=== PATIENT | male | born 1960 | race Hispanic/Latino ===

== ENCOUNTER 2017-06-30 17:18 | Observation (INO) | payer SELFPAY ==
[2017-06-30] MEDS ORDERED: Iodixanol 320 MG/ML 100 ML BOTTLE IV ONE (17:37)
[2017-06-30] MEDS ORDERED: Sodium Chloride 0.9% 50 ML IV ONE (17:38)
--- NOTE | 2017-06-30 17:46 | ED PDOC ---
HPI:STROKE - Time Time: 17:35 - Historian Historian: Patient, Family (chelsey) - Chief Complaint Chief Complaint: Facial droop (l) - Onset Date: 06/30/17 Time: 17:00 (occured today at 5 pm) - Notes: Notes:: 56 yo m with history of alcoholism, and drug abuse, brought in by friend who said that he was walking with patient and then patient felt weak and fell to the ground., did not hit head or neck. but just slumped over. no seizure activity, but had urinary incontinence. and now pt has new left sided facial droop. pt denies any problems or change, but pt is disoriented. stroke code called upon pt arrival . NIHSS Stroke Scale - Date/Time Evaluation Performed Date Performed: 06/30/17 Time Performed: 17:35 When Was NIHSS Performed: Baseline - How Severe is the Stroke Level of Consciousness: 0=Alert LOC to Questions: 2=Neither correct LOC to commands: 0=Obeys both correctly Best Gaze: 0=Normal Visual: 0=No visual loss Facial: 2=Partial (lower face paralysis) Motor Arm - Left: 1=Drift noted before 10 sec Motor Arm - Right: 0=No drift Motor Leg - Left: 0=No drift Motor Leg - Right: 0=No drift Limb Ataxia: 0=Absent Sensory: 0=Normal Best Language: 0=No aphasia Dysarthia: 0=Normal articulation Extinction & Inattention (Neglect): 0=Normal, no object Score: 5 rTPA Inclusion/Exclusion - Refusal of Treatment Patient Refused Treatment: No - Inclusion Criteria for Altepase Patient is 18 years or Older: Yes The Clinical Diagnosis of Ischemic Stroke That is Causing a Potentially Disabling Neurological Deficit: No Time of Onset is Well Established to be Less Than 270 Minute Before Treatment Would Begin: No Risk/Benefit Discussed With Patient/Family Member Present: No - Exclusion Criteria for Altepase Uncontrolled Hypertension at Time of Treatment (Systolic BP above 185 or Diastolic BP above 110 mmHg): No Active Internal Bleeding: No Known Bleeding Diathesis Including but Not Limited to: Platelets Below 100,000/ mm,PTT Above 40 sec After Heparin Use, Current Use of Oral Anitcoagulant With INR Greater Than 1.7 or PT Greater Than 15 secs: No Evidence of an Intracranial Hemorrhage: No Evidence of Major Acute Infarct With Signs Greater Than 1/3 MCA Territory: No Suspicion of Subarachnoid Hemorrhage on Pretreatment Evaluation Even if CT Head Negative For Hemorrhage: No - Warning to TPA With Conditions Following Conditions Weighed Against Anticipated Benefit: No Past Medical History - Medical History Other PMH: alcoholism - Surgical History Surgical History: No Surg Hx - Family History Family History: States: No Known Family Hx - Social History Current smoker - smoking cessation education provided: No Alcohol: > 2 Drinks/Day Drugs: Cannabis - Home Medications Home Medications: Ambulatory Orders Medication Instructions Recorded Gabapentin [Neurontin] 300 mg PO TID #90 cap 07/01/17 - Allergies Allergies/Adverse Reactions: Allergies Allergy/AdvReac Type Severity Reaction Status Date / Time No Known Allergies Allergy Verified 06/30/17 17:19 Physical Exam - Reviewed Nursing Documentation Reviewed: Yes Vital Signs Reviewed: Yes - Physical Exam Appears: Positive for: Well, Non-toxic, No Acute Distress Head Exam: Positive for: ATRAUMATIC, NORMAL INSPECTION, NORMOCEPHALIC Skin: Positive for: Normal Color, Warm, DRY Eye Exam: Positive for: EOMI, Normal appearance, PERRL Neck: Positive for: Normal, Painless ROM Cardiovascular/Chest: Positive for: Regular Rate, Rhythm Respiratory: Positive for: CNT, Normal Breath Sounds Gastrointestinal/Abdominal: Positive for: Normal Exam, Soft Back: Positive for: Normal Inspection Extremity: Positive for: Normal ROM Neurologic/Psych: Positive for: Alert, Other (see full neuro exam). Negative for: Oriented - Laboratory Results Result Diagrams: 06/30/17 18:00 06/30/17 18:00 Medical Decision Making Medical Decision Making: new facial droop with possible stroke/syncope/seizure code stroke called immediately given left facial droop and slight drift on the left upper extremity. Dr Lovett made aware of case, will see pt in the ER CT head report-- no acute process, old findings noted on CT. report given to me by Dr Garza [address] Lovett at bedside, recommend ASA and full workup/admission for rule out stroke CXR report - appeared negative Time: 2002 -- Hospital paged regarding admission. Time: 2006 -- Case discussed with Dr. Clay. Patient will be admitted for further evaluation/observation. Scribe Attestation: Documented by Mickey Castellon, acting as a scribe for Dr. Stevie Vazquez MD. Provider Scribe Attestation: All medical record entries made by the Scribe were at my direction and personally dictated by me. I have reviewed the chart and agree that the record accurately reflects my personal performance of the history, physical exam, medical decision making, and the department course for this patient. I have also personally directed, reviewed, and agree with the discharge instructions and disposition. Disposition - Clinical Impression Clinical Impression: Facial droop as late effect of cerebrovascular accident (CVA) - Patient ED Disposition Is Patient to be Admitted: Yes Counseled Patient/Family Regarding: Studies Performed, Diagnosis - Disposition Disposition Time: 19:00 Condition: STABLE
--- NOTE | 2017-06-30 17:57 | CT ---
PROCEDURE: CT HEAD WITHOUT CONTRAST. HISTORY: Altered mental status. Code stroke protocol employed COMPARISON: None available. TECHNIQUE: Axial computed tomography images were obtained through the head/brain without intravenous contrast. Coronal and sagittal reconstructed images. Radiation dose: Total exam DLP = 1082.43 mGy-cm. This CT exam was performed using one or more of the following dose reduction techniques: Automated exposure control, adjustment of the mA and/or kV according to patient size, and/or use of iterative reconstruction technique. FINDINGS: HEMORRHAGE: No intracranial hemorrhage. BRAIN: No mass effect or edema. Cortical and cerebellar atrophy, periventricular small vessel disease. Tiny lacune or infarcts less than 1 cm also identified on the right. Small extra-axial fluid collections about the convexities. Maximum thickness on the right 5.8 mm. Maximum thickness on the left 3.5 mm. No evidence of edema, mass effect or evidence of superimposed acute hemorrhage. VENTRICLES: Unremarkable. No hydrocephalus. CALVARIUM: Unremarkable. PARANASAL SINUSES: Unremarkable as visualized. No significant inflammatory changes. MASTOID AIR CELLS: Unremarkable as visualized. No inflammatory changes. OTHER FINDINGS: None. IMPRESSION: Extra-axial fluid collections about the convex CT's bilaterally. These are likely chronic. No edema or mass effect. No layering of blood products to suggest an acute component. Underlying cortical atrophy. Code stroke protocol: Study completed 17:40 Radiologist notified 17:49 Results conveyed verbally at 17:53. I discussed findings with the attending physician in the emergency department Dr. Vazquez. Interpretation finalized and available for review 17:56 June 30, 2017.
[2017-06-30 18:13] LABS: BASO # 0.1 K/uL (0.0-0.2); BASO % 3.3 % (0.0-2.0); EOS # 0.1 K/uL (0.0-0.7); EOS % 1.5 % (0.0-4.0); HEMOGLOBIN 12.8 g/dL (12.0-18.0); LYMPH # 1.2 K/uL (1.0-4.3); MEAN CELL VOLUME 103.5 fl (80.0-94.0); MEAN CORPUSCULAR HEMOGLOBIN 34.3 pg (27.0-31.0); MEAN CORPUSCULAR HGB CONC 33.1 g/dL (33.0-37.0); MONO # 0.4 K/uL (0.0-0.8); MONO % 9.3 % (0.0-10.0); NEUT # 2.2 K/uL (1.8-7.0); NEUT % 55.9 % (50.0-75.0); NRBC % 0.1 % (0.0-0.0); PLATELET COUNT 285 K/uL (130-400); RBC 3.74 Mil/uL (4.40-5.90); WHITE BLOOD COUNT 3.9 K/uL (4.8-10.8)
[2017-06-30] MEDS: Sodium Chloride 0.9% 1,000 ML IV SCH (18:14)
--- NOTE | 2017-06-30 18:18 | CT ---
PROCEDURE: CTA HEAD AND NECK WITH CONTRAST HISTORY: left facial droop COMPARISON: None available. TECHNIQUE: Initial noncontrast head CT was performed. Subsequently, CT angiogram of the head and neck were performed after the intravenous administration of 80 mL of Omnipaque 350. Contiguous 1.5mm thick images were obtained in the axial plane of the neck. 2-D coronal and sagittal MPR images were obtained. Imaging postprocessing was performed with 3-D images also obtained. A delayed contrast head CT was also obtained. This CT exam was performed using one or more of the following dose reduction techniques: Automated exposure control, adjustment of the mA and/or kV according to patient size, and/or use of iterative reconstruction technique. Contrast dose: 80 mL Visipaque Radiation dose: Total exam DLP = 784.33 mGy-cm. FINDINGS: HEAD: Right: The intracranial internal carotid artery, and anterior and middle cerebral arteries are widely patent. Left: The intracranial internal carotid artery, and anterior and middle cerebral arteries are widely patent. Posterior circulation: The visualized intracranial vertebral arteries, basilar artery and posterior cerebral arteries are widely patent. Ther is no endoluminal filling defect to suggest thrombus. There is no intracranial saccular aneurysm. NECK: There is a three vessel aortic arch. There is no stenosis at the origins of the great vessels at the level of the aortic arch. Right Carotid: On the right, the common carotid, internal carotid and external carotid arteries are widely patent. There is no hemodynamically significant stenosis in the internal carotid artery by NASCET criteria. Left Carotid: On the left, the common carotid, internal carotid and external carotid arteries are widely patent. There is no hemodynamically significant stenosis in the internal carotid artery by NASCET criteria. The vertebral arteries are widely patent. IMPRESSION: 1. No evidence of occlusion, definite significant stenosis or saccular aneurysm. 2. No evidence of hemodynamically significant stenosis in the internal carotid arteries. 3. Patent bilateral vertebral arteries.
[2017-06-30 18:26] LABS: INR 1.1 (0.9-1.2); PARTIAL THROMBOPLASTIN TIME 32.3 Seconds (25.6-37.1); PROTHROMBIN TIME 11.9 Seconds (9.8-13.1)
--- NOTE | 2017-06-30 18:30 | CP.PCM.CON ---
History of Present Illness - History of Present Illness History of Present Illness: Mr. Proctor is a 56-year-old alcoholic man, who was walking with his friend about two hours ago, when he suddenly leaned against the fence and urinated on himself, and fell to the ground. EMS was called. When they arrived, the patient was very combative and agitated. In the ED, a left facial droop was noted. CT scan of the head showed a right basal ganglia chronic lacunar stroke as well as chronic subdural collections. CTA of the head/neck did not show any large vessel occlusion. His NIHSS was 1. His facial droop was improving according to his friend. However, he remained slightly confused. Review of Systems - Review of Systems All systems: reviewed and no additional remarkable complaints except Past Patient History - Past Social History Smoking Status: Unknown If Ever Smoked - PSYCHIATRIC Hx Substance Use: Yes Meds Allergies/Adverse Reactions: Allergies Allergy/AdvReac Type Severity Reaction Status Date / Time No Known Allergies Allergy Verified 06/30/17 17:19 - Medications Medications: Current Medications Sodium Chloride (Sodium Chloride 0.9%) 1,000 mls @ 100 mls/hr IV .Q10H CESAR Last Admin: 06/30/17 18:14 Dose: 100 mls/hr Physical Exam - Constitutional Appears: Well - Head Exam Head Exam: ATRAUMATIC, NORMAL INSPECTION, NORMOCEPHALIC - Neurological Exam Neurological exam: Alert, CN II-XII Intact, Normal Gait, Oriented x3, Reflexes Normal Additional comments: Left facial droop noted. Sensation is intact. Strength is full throughout. NIHSS = 1. Results - Vital Signs Recent Vital Signs: Last Vital Signs Temp 97.8 F 06/30/17 18:05 Pulse 101 H 06/30/17 18:05 Resp 20 06/30/17 18:05 BP 148/88 06/30/17 18:05 Pulse Ox 97 06/30/17 18:05 - Labs Result Diagrams: 06/30/17 18:00 Labs: Laboratory Results - last 24 hr 06/30/17 06/30/17 17:21 18:00 WBC 3.9 L RBC 3.74 L Hgb 12.8 Hct 38.8 MCV 103.5 H MCH 34.3 H MCHC 33.1 RDW 15.0 H Plt Count 285 MPV 7.0 L Neut % (Auto) 55.9 Lymph % (Auto) 30.0 [place] % (Auto) 9.3 Eos % (Auto) 1.5 Baso % (Auto) 3.3 H Neut # (Auto) 2.2 Lymph # (Auto) 1.2 [place] # (Auto) 0.4 Eos # (Auto) 0.1 Baso # (Auto) 0.1 POC Glucose (mg/dL) 89 Assessment & Plan (1) Facial droop as late effect of cerebrovascular accident (CVA) Assessment and Plan: This could be due to exacerbation of previous right lacunar stroke. However, it may also be a new infarct. His symptoms are too mild and are improving. He is not a good candidate for IV tPA especially since there was a likely seizure at onset. I recommend the followin. Telemetry 2. MRI brain without contrast 3. Aspirin 325 now and continue 81 mg daily 4. PT/OT eval and treatment 5. Fluids with NS at 100 mL/hr 6. Check lipid panel, HbA1c, B12, folate, TSH, homocysteine 7. Echocardiogram 8. Case management consult Thank you. Status: Acute (2) Seizure Assessment and Plan: Start gabapentin 300 mg TID for prophylaxis. Will obtain EEG awake and drowsy for 30 minutes. Thank you. Status: Acute
--- NOTE | 2017-06-30 18:38 | RAD ---
HISTORY: Code Stroke COMPARISON: No prior. FINDINGS: LUNGS: There are low lung volumes. The lungs are clear. PLEURA: No significant pleural effusion identified, no pneumothorax apparent. CARDIOVASCULAR: Normal. OSSEOUS STRUCTURES: No significant abnormalities. VISUALIZED UPPER ABDOMEN: Normal. OTHER FINDINGS: None. IMPRESSION: No active pulmonary disease.
[2017-06-30 18:44] LABS: LDL CHOLESTEROL 119 mg/dL (0-129)
[2017-06-30 18:52] LABS: ALB/GLOB RATIO 1.1 (1.0-2.1); ALBUMIN 3.7 g/dL (3.5-5.0); ALT/SGPT 59 U/L (21-72); AST/SGOT 88 U/L (17-59); BLOOD UREA NITROGEN 8 mg/dl (9-20); CALCIUM 8.8 mg/dL (8.4-10.2); GFR AFRICAN-AMERICAN > 60; GFR NON-AFRICAN AMERICAN > 60; HDL CHOLESTEROL 62 MG/DL (30-70)
[2017-06-30 19:48] LABS: BARBITURATES, UR NEGATIVE (NEGATIVE); BENZODIAZEPINES, UR NEGATIVE (NEGATIVE); OPIATES, UR NEGATIVE (NEGATIVE); PHENCYCLIDINE, UR NEGATIVE (NEGATIVE)
[2017-06-30 19:56] LABS: ANISOCYTOSIS SLIGHT; EOSINOPHIL 1 % (0-7); LYMPHOCYTE 33 % (20-50); MONOCYTE 5 % (0-10); NEUTROPHIL 56 % (42-75); POIKILOCYTOSIS SLIGHT; REACTIVE LYMPHOCYTES 5 % (0-0); TOTAL CELLS COUNTED 100
[2017-06-30 19:57] LABS: HYPOCHROMIC SLIGHT; STOMATOCYTES SLIGHT
[2017-06-30 20:01] LABS: PLATELET ESTIMATE NORMAL (NORMAL)
[2017-06-30] MEDS ORDERED: Multivitamin (MVI) 10 ML, Thiamine 100 MG, Folic Acid 1 MG in Sodium Chloride 0.9% 1,00... IV ONE (20:02)
--- NOTE | 2017-06-30 20:55 | CP.PCM.HP ---
History of Present Illness - History of Present Illness History of Present Illness: CC: Altered mental status This is a 56 yo male with a pmh of alcoholism (drinks a bottle a wine 5 days a week), denies any other medical problems, who presents to the ED after sudden alteration of mental status. He was walking outside with his friend 2 hours prior to admission when he suddenly leaned against a fence and was unresponsive and had urinary incontinence. EMS was called; when they arrived the patient was combative and agitated and was also found to be intoxicated. In the ED, the patient was noted to have left facial droop. Code stroke was called and patient was sent for CT of the brain which revealed right basal ganglia chronic lacunar stroke as well as chronic subdural collections. CTA of the head/neck did not show any large vessel occlusion. MRI brain was performed, report pending at this time. Dr. Lovett, neurologist, evaluated the patient in the ED. The patient is being admitted to tele/observation for further workup of likely seizure activity and workup for CVA. Patient denies chest pain, shortness of breath, fevers, chills, nausea, vomiting, diarrhea, headache. All of the patient's questions were answered at the bedside. Present on Admission - Present on Admission Any Indicators Present on Admission: No History of DVT/PE: No History of Uncontrolled Diabetes: No Review of Systems - Review of Systems Review of Systems: A 12 point review of systems was conducted and found to be negative other than what was mentioned in the HPI. Past Patient History - Infectious Disease Hx of Infectious Diseases: None - Past Medical History & Family History Past Medical History?: No Past Family History: Reviewed and not pertinent - Past Social History Smoking Status: Never Smoked Alcohol: > 2 Drinks/Day Drugs: Cannabis - PSYCHIATRIC Hx Substance Use: Yes - SURGICAL HISTORY Hx Orthopedic Surgery: Yes (bilateral knee surgeries) Meds Allergies/Adverse Reactions: Allergies Allergy/AdvReac Type Severity Reaction Status Date / Time No Known Allergies Allergy Verified 06/30/17 17:19 Physical Exam - Additional Findings Additional findings: Physical exam: Constitutional- cooperative, awake, alert Head- NCAT, PERRL Eye- PERRL, EOMI ENT- normal exam, MMM. Neck- normal inspection, supple, no JVD Respiratory- CTAB, no wheezes rales rhonchi Cardiovascular- RRR, +S1, +S2 no MRG GI/Abdominal- normal bowel sounds, soft, no mass, no hsm Skin- warm, dry Extremities Exam- normal capillary refill, normal inspection Neurological Exam- alert, awake, oriented x 3 at time of exam. + left facial droop. + left pronator drift, mild. 5/5 muscle strength x 4 extremities. Psych- + appears anxious. + normal affect Results - Vital Signs Recent Vital Signs: Last Vital Signs Temp 97.8 F 06/30/17 18:05 Pulse 88 06/30/17 18:20 Resp 15 06/30/17 18:20 BP 145/94 H 06/30/17 18:20 Pulse Ox 95 06/30/17 18:20 - Labs Result Diagrams: 06/30/17 18:00 06/30/17 18:00 Labs: Laboratory Results - last 24 hr 06/30/17 06/30/17 06/30/17 17:21 18:00 18:00 WBC 3.9 L RBC 3.74 L Hgb 12.8 Hct 38.8 MCV 103.5 H MCH 34.3 H MCHC 33.1 RDW 15.0 H Plt Count 285 MPV 7.0 L Neut % (Auto) 55.9 Lymph % (Auto) 30.0 [place] % (Auto) 9.3 Eos % (Auto) 1.5 Baso % (Auto) 3.3 H Neut # (Auto) 2.2 Lymph # (Auto) 1.2 [place] # (Auto) 0.4 Eos # (Auto) 0.1 Baso # (Auto) 0.1 Neutrophils % (Manual) 56 Lymphocytes % (Manual) 33 Reactive Lymphs % 5 H Monocytes % (Manual) 5 Eosinophils % (Manual) 1 Platelet Estimate Normal RBC Morphology Normal Hypochromasia (manual) Slight Poikilocytosis (manual Slight Anisocytosis (manual) Slight Macrocytosis (manual) Slight Stomatocytes Slight PT INR APTT Sodium 143 Potassium 3.7 Chloride 102 Carbon Dioxide 19 L Anion Gap 26 H BUN 8 L Creatinine 0.6 L Est GFR ( Amer) > 60 Est GFR (Non-Af Amer) > 60 POC Glucose (mg/dL) 89 Random Glucose 91 Calcium 8.8 Total Bilirubin 0.5 AST 88 H ALT 59 Alkaline Phosphatase 63 Troponin I < 0.0120 Total Protein 7.2 Albumin 3.7 Globulin 3.4 Albumin/Globulin Ratio 1.1 Triglycerides 78 Cholesterol 203 H LDL Cholesterol Direct 119 HDL Cholesterol 62 Urine Opiates Screen Urine Methadone Screen Ur Barbiturates Screen Ur Phencyclidine Scrn Ur Amphetamines Screen U Benzodiazepines Scrn U Oth Cocaine Metabols U Cannabinoids Screen Alcohol, Quantitative 348 H* 06/30/17 06/30/17 18:00 19:20 WBC RBC Hgb Hct MCV MCH MCHC RDW Plt Count MPV Neut % (Auto) Lymph % (Auto) [place] % (Auto) Eos % (Auto) Baso % (Auto) Neut # (Auto) Lymph # (Auto) [place] # (Auto) Eos # (Auto) Baso # (Auto) Neutrophils % (Manual) Lymphocytes % (Manual) Reactive Lymphs % Monocytes % (Manual) Eosinophils % (Manual) Platelet Estimate RBC Morphology Hypochromasia (manual) Poikilocytosis (manual Anisocytosis (manual) Macrocytosis (manual) Stomatocytes PT 11.9 INR 1.1 APTT 32.3 Sodium Potassium Chloride Carbon Dioxide Anion Gap BUN Creatinine Est GFR ( Amer) Est GFR (Non-Af Amer) POC Glucose (mg/dL) Random Glucose Calcium Total Bilirubin AST ALT Alkaline Phosphatase Troponin I Total Protein Albumin Globulin Albumin/Globulin Ratio Triglycerides Cholesterol LDL Cholesterol Direct HDL Cholesterol Urine Opiates Screen Negative Urine Methadone Screen Negative Ur Barbiturates Screen Negative Ur Phencyclidine Scrn Negative Ur Amphetamines Screen Negative U Benzodiazepines Scrn Negative U Oth Cocaine Metabols Negative U Cannabinoids Screen Positive H Alcohol, Quantitative Assessment & Plan - Assessment and Plan (Free Text) Plan: ASSESSMENT/PLAN This is a 56 yo male with a pmh of alcoholism (drinks a bottle a wine 5 days a week), denies any other medical problems, who presents to the ED after sudden alteration of mental status, being placed on tele/obs for seizure and CVA workup. 1) Possible CVA (left facial droop) with likely seizure activity, unsure if seizure due to old CVA, acute CVA - Place on tele/obs - Consultation with Dr. Lovett, neurology - Echocardiogram - EEG - NS at 100 cc/hour - ASA 81 mg po daily - Gabapentin 300 mg po TID for seizure prophylaxis as per Dr. Lovett - Ativan 1 mg IVP PRN for seizure activity - F/u MRI brain report - F/u homocysteine, B12/folate, TSH, HGA1C. Lipid panel shows elevated cholesterol of 203. - PT/OT eval and treatment - Case management consult 2) Alcohol abuse - Ativan PRN for seizure - Patient acutely intoxicated when arriving to ED - Multivitamin bag - Check B12/folate levels as above (patient has elevated MCV) 3) Cannabis abuse - chronic 4) DVT prophylaxis - Lovenox 40 mg sc daily
[2017-07-01 00:14] VITALS: RESP 18; O2SAT 95
[2017-07-01] MEDS: Sodium Chloride 0.9% 1,000 ML IV SCH (04:21)
[2017-07-01 08:19] VITALS: TEMP 98.3
--- NOTE | 2017-07-01 08:23 | CARD ---
APPROVED REPORT EKG Measurement Heart [id number] <Conclusion> Normal sinus rhythm Possible Left atrial enlargement Left axis deviation Low voltage QRS Cannot rule out Anterior infarct, age undetermined Abnormal ECG
[2017-07-01] MEDS ORDERED: Enoxaparin 40 mg Syringe SC SCH (09:00)
--- NOTE | 2017-07-01 11:22 | MRI ---
PROCEDURE: MRI BRAIN WITHOUT CONTRAST HISTORY: stroke COMPARISON: Unenhanced head CT 06/30/2017. TECHNIQUE: Multiplanar, multisequence MR images of the brain were obtained without intravenous contrast enhancement. FINDINGS: HEMORRHAGE: None DWI: No evidence of an acute or early subacute infarction. BRAIN PARENCHYMA: Examination is remarkable only for limited periventricular white matter increased long TR signal an occasional bifrontal/biparietal subcortical sub cm long TR hyperintensities as well. These are all felt to be reflective of chronic microangiopathy rather than any of a number of other differential diagnostic possibilities. There is no mass effect or suspicious extra-axial collection and midline brain and appears within normal limits. VENTRICLES: Unremarkable. No hydrocephalus. CRANIUM: Unremarkable. ORBITS: Grossly unremarkable. PARANASAL SINUSES/MASTOIDS: Mild right sphenoid sinus disease is evident. VASCULAR SYSTEM: Skull base flow voids intact. OTHER FINDINGS: None. IMPRESSION: No acute intracranial findings by standard MR criteria. Limited age-related neuro degenerative change are appreciated which appear age-appropriate.
--- NOTE | 2017-07-01 12:00 | CP.PCM.DIS ---
Provider - Provider Date of Admission: 06/30/17 20:01 Attending physician: Hussein Clay DO Primary care physician: none Consults: neurology consult Time Spent in preparation of Discharge (in minutes): 15 Hospital Course - Lab Results Lab Results: Most Recent Lab Values WBC 3.9 K/uL (4.8-10.8) L 06/30/17 18:00 RBC 3.74 Mil/uL (4.40-5.90) L 06/30/17 18:00 Hgb 12.8 g/dL (12.0-18.0) 06/30/17 18:00 Hct 38.8 % (35.0-51.0) 06/30/17 18:00 MCV 103.5 fl (80.0-94.0) H 06/30/17 18:00 MCH 34.3 pg (27.0-31.0) H 06/30/17 18:00 MCHC 33.1 g/dL (33.0-37.0) 06/30/17 18:00 RDW 15.0 % (11.5-14.5) H 06/30/17 18:00 Plt Count 285 K/uL (130-400) 06/30/17 18:00 MPV 7.0 fl (7.2-11.7) L 06/30/17 18:00 Neut % (Auto) 55.9 % (50.0-75.0) 06/30/17 18:00 Lymph % (Auto) 30.0 % (20.0-40.0) 06/30/17 18:00 Warrick % (Auto) 9.3 % (0.0-10.0) 06/30/17 18:00 Eos % (Auto) 1.5 % (0.0-4.0) 06/30/17 18:00 Baso % (Auto) 3.3 % (0.0-2.0) H 06/30/17 18:00 Neut # (Auto) 2.2 K/uL (1.8-7.0) 06/30/17 18:00 Lymph # (Auto) 1.2 K/uL (1.0-4.3) 06/30/17 18:00 Warrick # (Auto) 0.4 K/uL (0.0-0.8) 06/30/17 18:00 Eos # (Auto) 0.1 K/uL (0.0-0.7) 06/30/17 18:00 Baso # (Auto) 0.1 K/uL (0.0-0.2) 06/30/17 18:00 Neutrophils % (Manual) 56 % (42-75) 06/30/17 18:00 Lymphocytes % (Manual) 33 % (20-50) 06/30/17 18:00 Reactive Lymphs % 5 % (0-0) H 06/30/17 18:00 Monocytes % (Manual) 5 % (0-10) 06/30/17 18:00 Eosinophils % (Manual) 1 % (0-7) 06/30/17 18:00 Platelet Estimate Normal (NORMAL) 06/30/17 18:00 RBC Morphology Normal (NORMAL) 06/30/17 18:00 Hypochromasia (manual) Slight 06/30/17 18:00 Poikilocytosis (manual Slight 06/30/17 18:00 Anisocytosis (manual) Slight 06/30/17 18:00 Macrocytosis (manual) Slight 06/30/17 18:00 Stomatocytes Slight 06/30/17 18:00 PT 11.9 Seconds (9.8-13.1) 06/30/17 18:00 INR 1.1 (0.9-1.2) 06/30/17 18:00 APTT 32.3 Seconds (25.6-37.1) 06/30/17 18:00 Sodium 143 mmol/l (132-148) 06/30/17 18:00 Potassium 3.7 MMOL/L (3.6-5.0) 06/30/17 18:00 Chloride 102 mmol/L (98-107) 06/30/17 18:00 Carbon Dioxide 19 mmol/L (22-30) L 06/30/17 18:00 Anion Gap 26 (10-20) H 06/30/17 18:00 BUN 8 mg/dl (9-20) L 06/30/17 18:00 Creatinine 0.6 mg/dl (0.8-1.5) L 06/30/17 18:00 Est GFR ( Amer) > 60 06/30/17 18:00 Est GFR (Non-Af Amer) > 60 06/30/17 18:00 POC Glucose (mg/dL) 129 mg/dL (65-110) H 07/01/17 11:40 Random Glucose 91 mg/dL (75-110) 06/30/17 18:00 Calcium 8.8 mg/dL (8.4-10.2) 06/30/17 18:00 Total Bilirubin 0.5 mg/dl (0.2-1.3) 06/30/17 18:00 AST 88 U/L (17-59) H 06/30/17 18:00 ALT 59 U/L (21-72) 06/30/17 18:00 Alkaline Phosphatase 63 U/L (38-126) 06/30/17 18:00 Troponin I < 0.0120 ng/mL (0.00-0.120) 06/30/17 18:00 Total Protein 7.2 G/DL (6.3-8.2) 06/30/17 18:00 Albumin 3.7 g/dL (3.5-5.0) 06/30/17 18:00 Globulin 3.4 gm/dL (2.2-3.9) 06/30/17 18:00 Albumin/Globulin Ratio 1.1 (1.0-2.1) 06/30/17 18:00 Triglycerides 78 mg/DL (0-149) 06/30/17 18:00 Cholesterol 203 mg/dL (0-199) H 06/30/17 18:00 LDL Cholesterol Direct 119 mg/dL (0-129) 06/30/17 18:00 HDL Cholesterol 62 MG/DL (30-70) 06/30/17 18:00 Vitamin B12 331 pg/mL (239-931) 06/30/17 20:44 Homocysteine 24.7 umol/L ( <11.4) H 06/30/17 20:44 TSH 3rd Generation 0.63 mIU/ML (0.46-4.68) 06/30/17 20:44 Urine Opiates Screen Negative (NEGATIVE) 06/30/17 19:20 Urine Methadone Screen Negative (NEGATIVE) 06/30/17 19:20 Ur Barbiturates Screen Negative (NEGATIVE) 06/30/17 19:20 Ur Phencyclidine Scrn Negative (NEGATIVE) 06/30/17 19:20 Ur Amphetamines Screen Negative (NEGATIVE) 06/30/17 19:20 U Benzodiazepines Scrn Negative (NEGATIVE) 06/30/17 19:20 U Oth Cocaine Metabols Negative (NEGATIVE) 06/30/17 19:20 U Cannabinoids Screen Positive (NEGATIVE) H 06/30/17 19:20 Alcohol, Quantitative 348 mg/dl (0-10) H* 06/30/17 18:00 - Hospital Course Hospital Course: 56 yo M with history of alcoholism, and drug abuse, brought in by friend who said that he was walking with patient and then patient felt weak and fell to the ground, did not hit head or neck, but just slumped over, no seizure activity , but had urinary incontinence.Patient had been drinking heavily that day. IN ER noted some mild left sided facial droop. so code stroke called .CT head showed no acute pathology. He wsa placed under observation in telemetry , neuro wsa consulted , started on Gabapentin PO for seizure prevention .MRI head showed :No acute intracranial findings by standard MR criteria. Limited age- related neuro degenerative change are appreciated which appear age-appropriate. Patient today is hemodynamically stable, afebrile with no neuro deficits , stable gait , AAOx3, with no tremors or signs of withdrawal. Counselled patient on ETOH abuse . Discussed with neuro. Cleared for discharge. Will d/c home on Gabapentin PO for seizure prevention Follow up with [facility] 1. Most likely seizure episode CVA ruled out d/c on Gabapentin Follow [facility]w [facility] , Dr. Lovett 2. Alcohol abuse ETOH level 382 on admission counselled on abuse 3. Cannabis abuse chronic Discharge Exam - Head Exam Head Exam: ATRAUMATIC, NORMAL INSPECTION, NORMOCEPHALIC - Eye Exam Eye Exam: EOMI, Normal appearance, PERRL Pupil Exam: NORMAL ACCOMODATION - ENT Exam ENT Exam: Mucous Membranes Moist, Normal Exam - Neck Exam Neck exam: Full Rom, Normal Inspection - Respiratory Exam Respiratory Exam: Clear to PA & Lateral, NORMAL BREATHING PATTERN. absent: Rales, Rhonchi, Wheezes - Cardiovascular Exam Cardiovascular Exam: REGULAR RHYTHM, RRR, +S1, +S2. absent: JVD - GI/Abdominal Exam GI & Abdominal Exam: Normal Bowel Sounds, Soft. absent: Distended, Guarding, Rebound, Tenderness - Rectal Exam Rectal Exam: Deferred - Extremities Exam Extremities exam: normal capillary refill, normal inspection, pedal pulses present - Back Exam Back exam: NORMAL INSPECTION - Neurological Exam Neurological exam: Alert, CN II-XII Intact, Reflexes Normal - Psychiatric Exam Psychiatric exam: Normal Affect, Normal Mood - Skin Skin Exam: Dry, Intact, Normal Color, Warm Discharge Plan - Discharge Medications Prescriptions: Gabapentin [Neurontin] 300 mg PO TID #90 cap - Follow Up Plan Condition: STABLE Disposition: HOME/ ROUTINE Patient education suggested?: Yes Instructions: Seizures, Adult (DC), Alcohol Abuse and Alcoholism (DC) Referrals: [facility] [place] [Outside]
--- NOTE | 2017-07-01 12:24 | CP.PCM.PN ---
Subjective - Date & Time of Evaluation Date of Evaluation: 07/01/17 Time of Evaluation: 12:21 - Subjective Subjective: Mr. Proctor was seen and examined at the bedside. He is alert, oriented in all spheres. He denies any headache dizziness, lightheadedness, nausea, or vomiting. He is able to follow commands. He has mild tremors and able to do his ADL. There was no untoward events overnight. Objective - Vital Signs/Intake and Output Vital Signs (last 24 hours): Temp Pulse Resp BP Pulse Ox 98.3 F 81 18 169/99 H 95 07/01/17 08:18 07/01/17 09:00 07/01/17 08:18 07/01/17 08:18 07/01/17 08:18 - Medications Medications: Current Medications Acetaminophen (Tylenol 325mg Tab) 650 mg PO Q6 PRN PRN Reason: Pain, Mild (1-3) Aspirin (Aspirin Chewable) 81 mg PO DAILY [facility] Last Admin: 07/01/17 08:51 Dose: 81 mg Enoxaparin Sodium (Lovenox) 40 mg SC DAILY [facility] PRN Reason: Protocol Last Admin: 07/01/17 08:51 Dose: 40 mg Gabapentin (Neurontin) 300 mg PO TID [facility] Last Admin: 07/01/17 08:51 Dose: 300 mg Sodium Chloride (Sodium Chloride 0.9%) 1,000 mls @ 100 mls/hr IV .Q10H [facility] Last Admin: 07/01/17 04:21 Dose: 100 mls/hr Lorazepam (Ativan) 1 mg IVP Q4H PRN PRN Reason: Seizure activity Ondansetron HCl (Zofran Inj) 4 mg IVP Q6 PRN PRN Reason: Nausea/Vomiting - Labs Labs: 06/30/17 18:00 06/30/17 18:00 PT 11.9 Seconds (9.8-13.1) 06/30/17 18:00 INR 1.1 (0.9-1.2) 06/30/17 18:00 APTT 32.3 Seconds (25.6-37.1) 06/30/17 18:00 - Constitutional Appears: No Acute Distress - Head Exam Head Exam: NORMAL INSPECTION - Neurological Exam Neurological Exam: Alert, Awake, Oriented x3 Neuro motor strength exam: Left Upper Extremity: 5, Right Upper Extremity: 5, Left Lower Extremity: 5, Right Lower Extremity: 5 Additional comments: Alert, oriented in all spheres, follow simple commands, sensation is intact. Assessment and Plan (1) Seizure Assessment & Plan: Case discussed with Dr. Lovett, continue all current medical regimen. Recommend to follow up with an outpatient neurologist. Pending EEG and echocardiogram results. Status: Acute
[2017-07-01 12:25] VITALS: BP 133/93; PULSE 96
[2017-07-01 16:03] LABS: FOLATE 5.3 ng/mL
--- NOTE | 2017-07-02 07:56 | CARD ---
APPROVED REPORT EXAM: Three-dimensional, Two-dimensional and M-mode echocardiogram with Doppler and color Doppler. Other Information Quality : GoodRhythm : NSR INDICATION CVA/TIA Echo Enhancing Agent Indication: Rule Out Septal Defect Agent/Amount Used: Agitated Saline 2D DIMENSIONS IVSd1.26 (0.7-1.1cm)LVDd2.91 (3.9-5.9cm) LVOT Diameter2.54 (1.8-2.4cm)PWd1.30 (0.7-1.1cm) IVSs1.76 (0.8-1.2cm)LVDs2.81 (2.5-4.0cm) FS (%) 3.5 %PWs1.30 (0.8-1.2cm) M-Mode DIMENSIONS Left Atrium (MM)2.81 (2.5-4.0cm)IVSd1.43 (0.7-1.1cm) Aortic Root3.61 (2.2-3.7cm)LVDd3.58 (4.0-5.6cm) Aortic Cusp Exc.2.12 (1.5-2.0cm)PWd1.19 (0.7-1.1cm) IVSs1.79 cmFS (%) 42 % LVDs2.07 (2.0-3.8cm)PWs1.71 cm Mitral Valve MV E Laziaeoo07.3cm/sMV DECEL [id number] A Fatrutur22.6cm/s MV [id number] ratio0.6MVA (PHT)2.69cm2 TDI Lateral E' Peak V6.36cm/sMedial E' Peak V5.95cm/sE/Lateral E'6.5 E/Medial E'6.9 LEFT VENTRICLE The left ventricle is normal size. There is normal left ventricular wall thickness. Left ventricle systolic function is normal. The Ejection Fraction is 60-65%. There is normal LV segmental wall motion. Transmitral Doppler flow pattern is Grade I-abnormal relaxation pattern. RIGHT VENTRICLE The right ventricle is normal size. There is normal right ventricular wall thickness. The right ventricular systolic function is normal. ATRIA The left atrium size is normal. The right atrium size is normal. No interatrial shunt was detected by the bubble study. AORTIC VALVE The aortic valve is normal in structure. No aortic regurgitation is present. There is no aortic valvular stenosis. MITRAL VALVE The mitral valve is normal in structure. There is no evidence of mitral valve prolapse. There is no mitral valve stenosis. There is no mitral valve regurgitation noted. TRICUSPID VALVE The tricuspid valve is normal in structure. There is no tricuspid valve regurgitation noted. PULMONIC VALVE The pulmonary valve is normal in structure. There is no pulmonic valvular regurgitation. GREAT VESSELS The aortic root is normal in size. The IVC is normal in size and collapses >50% with inspiration. PERICARDIAL EFFUSION The pericardium appears normal. <Conclusion> The left ventricle is normal size. There is normal left ventricular wall thickness. There is normal LV segmental wall motion. Left ventricle systolic function is normal. The Ejection Fraction is 60-65%. Transmitral Doppler flow pattern is Grade I-abnormal relaxation pattern. No interatrial shunt was detected by the bubble study.
== END 2017-07-01 14:06 | disposition home or self-care (01) ==
LOC: H.ER 17:18 → INTOOBSV 20:01 → H.ERHOLD 20:01 → H.TEL 21:40
PROVIDERS: ADMIT Internal Medicine; ATTEND Internal Medicine
DX: R29.810 Facial weakness (principal); F10.229 Alcohol dependence with intoxication, unspecified; Y90.8 Blood alcohol level of 240 mg/100 ml or more; R56.9 Unspecified convulsions; R32 Unspecified urinary incontinence; F12.10 Cannabis abuse, uncomplicated; Z86.73 Personal history of transient ischemic attack (TIA), and cerebral infarction without residual deficits; Z71.41 Alcohol abuse counseling and surveillance of alcoholic
CPT/HCPCS: 70450; 70496; 70498; 70551; 71045; 80053; 80061; 82607; 82746; 82948; 83036; 83090; 84443; 84484; 85025; 85610; 85730; 93005; 93306; 95816; 97162; 97166; 99285; G0378; G0480; G8978; G8979; G8987; G8988; J1650; J3411; J7040; Q9967